=== PATIENT | female | born 1985 | race Caucasian/White ===

== ENCOUNTER 2017-10-04 14:20 | Emergency (ER) | payer SELFPAY ==
--- NOTE | 2017-10-04 14:58 | EDPHYS ---
Physician Documentation [facility] Name: Kortney Paniagua Age: 31 yrs Sex: Female : 1985 Arrival Date: 10/04/2017 Time: 14:23 Bed 12 Private MD: ED Physician Carlo More HPI: 10/04 14:53 This 31 yrs old Female presents to ER via Ambulatory with complaints of Rash..ps1 14:53 The patient's rash thought to be caused by insect bites. The rash is located on the ps1 right hand. The rash can be described as erythematous, papular, raised. 14:53 Associated signs and symptoms: Pertinent positives: itching, Pertinent negatives: ps1 fever. Treatment given at home: hydroxizine. The patient has been recently seen by a physician: MARVIN Mcdermott. 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 - Social history:: Smoking status: Patient uses tobacco products, smokes one pack cigarettes per day. ROS: 14:53 Constitutional: Negative for fever, chills, and weight loss, Eyes: Negative for injury, ps1 pain, redness, and discharge, Cardiovascular: Negative for chest pain, palpitations, and edema, Respiratory: Negative for shortness of breath, cough, wheezing, and pleuritic chest pain, Abdomen/GI: Negative for abdominal pain, nausea, vomiting, diarrhea, and constipation, Back: Negative for injury and pain, MS/Extremity: Negative for injury and deformity. 14:53 Skin: Positive for rash. Exam: 14:53 Constitutional: This is a well developed, well nourished patient who is awake, alert, ps1 and in no acute distress. Head/Face: Normocephalic, atraumatic. Chest/axilla: Normal chest wall appearance and motion. Nontender with no deformity. No lesions are appreciated. Cardiovascular: Regular rate and rhythm. No gallops, murmurs, or rubs. Normal PMI, no JVD. No pulse deficits. Respiratory: Lungs have equal breath sounds bilaterally, clear to auscultation and percussion. No rales, rhonchi or wheezes noted. No increased work of breathing, no retractions or nasal flaring. Abdomen/GI: Soft, non-tender, with normal bowel sounds. No distension or tympany. No guarding or rebound. No evidence of tenderness throughout. 14:53 Skin: rash a moderate rash is noted, rash can be described as erythematous, papular, raised, appears consistent with insect bites/chigger appearance. . Vital Signs: 14:34 BP 123 / 64; Pulse 91; Resp 14; Temp 97.8(TE); Pulse Ox 97% on R/A; Weight 65.77 kg lk1 (R); Height 5 ft. 2 in. (157.48 cm) (R); Pain 10/10; 14:34 Body Mass Index 26.52 (65.77 kg, 157.48 cm) lk1 MDM: 14:52 Patient medically screened. ps1 14:53 Data reviewed: vital signs, nurses notes. ps1 Administered Medications: No medications were administered Disposition: 10/04/17 14:57 Discharged to Home. Impression: Rash/ Insect bites consistent with chigger exposure. . - Condition is Stable. - Discharge Instructions: Insect Bite, Rash. - Prescriptions for Hydrocortisone 0.5 % Topical Cream - apply 1 application by TOPICAL route every 12 hours As needed; 30 gram. Medrol (Jose Antonio) 4 mg Oral Tablets, Dose Pack - take 1 tablet by ORAL route as directed - follow package instructions; 1 packet. - Work release form, Medication Reconciliation Form, Thank You Letter, Antibiotic Education, Prescription Opioid Use form. - Follow up: Private Physician; When: As needed; Reason: Recheck today's complaints, Continuance of care, Re-evaluation by your physician. Follow up: Emergency Department; When: As needed; Reason: Fever > 102 F, Trouble breathing, Worsening of condition. - Problem is an ongoing problem. - Symptoms are unchanged. Signatures: Mary Toledo RN RN aj1 Shannan Ramos RN RN lk1 Carlo More MD MD ps1
--- NOTE | 2017-10-04 14:58 | ER ---
Nurse's Notes [facility] Name: Kortney Paniagua Age: 31 yrs Sex: Female : 1985 Arrival Date: 10/04/2017 Time: 14:23 Bed 12 Private MD: Diagnosis: Rash/ Insect bites consistent with chigger exposure. Presentation: 10/04 14:31 Presenting complaint: Patient states: "I got this rash on my hand (right) 3 days ago. lk1 It started like mosquito bites and now it looks like this. Its on my hand, shoulder, face, and hip. I went to another ER and they don't know what it is, they just gave me a bunch of pills.". Transition of care: patient was not received from another setting of care. Onset of symptoms was October 01, 2017. Care prior to arrival: None. 14:31 Method Of Arrival: Ambulatory lk1 14:31 Acuity: JOSEMANUEL 4 lk1 Triage Assessment: 14:34 General: Appears in no apparent distress. Behavior is calm, cooperative, appropriate lk1 for age. Pain: Complains of pain in right hand Pain currently is 10 out of 10 on a pain scale. Respiratory: Airway is patent Respiratory effort is even, unlabored, Respiratory pattern is regular, symmetrical. 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 - Social history:: Smoking status: Patient uses tobacco products, smokes one pack cigarettes per day. Screenin:01 Abuse screen: Denies threats or abuse. Denies injuries from another. Nutritional aj1 screening: No deficits noted. Tuberculosis screening: No symptoms or risk factors identified. 15:09 Fall Risk None identified. aj1 Assessment: 15:01 General: Appears in no apparent distress. comfortable, Behavior is calm, cooperative, aj1 appropriate for age. Pain: Denies pain. Neuro: Level of Consciousness is awake, alert, obeys commands, Oriented to person, place, time, situation. Cardiovascular: Patient's skin is warm and dry. Respiratory: Airway is patent Respiratory effort is even, unlabored, Respiratory pattern is regular, symmetrical. GI: No signs and/or symptoms were reported involving the gastrointestinal system. : No signs and/or symptoms were reported regarding the genitourinary system. EENT: No signs and/or symptoms were reported regarding the EENT system. Derm: Rash noted that is itchy, papular, red, raised. Musculoskeletal: No signs and/or symptoms reported regarding the musculoskeletal system. Circulation, motion, and sensation intact. Vital Signs: 14:34 BP 123 / 64; Pulse 91; Resp 14; Temp 97.8(TE); Pulse Ox 97% on R/A; Weight 65.77 kg lk1 (R); Height 5 ft. 2 in. (157.48 cm) (R); Pain 10/10; 14:34 Body Mass Index 26.52 (65.77 kg, 157.48 cm) lk1 ED Course: 14:23 Patient arrived in ED. sb2 14:30 Carlo More MD is Attending Physician. ps1 14:33 Triage completed. lk1 14:36 Arm band placed on left wrist. lk1 14:53 Mary Toledo, RN is Primary Nurse. aj1 15:01 Patient has correct armband on for positive identification. aj1 15:01 No provider procedures requiring assistance completed. Patient did not have IV access aj1 during this emergency room visit. Administered Medications: No medications were administered Outcome: 14:57 Discharge ordered by . ps1 15:08 Discharged to home ambulatory. aj1 15:08 Condition: good 15:08 Discharge instructions given to patient, Instructed on discharge instructions, follow up and referral plans. medication usage, Demonstrated understanding of instructions, follow-up care, medications, Prescriptions given X 2. 15:09 Patient left the ED. aj1 Signatures: Mary Toledo, RN RN aj1 Shannan Ramos RN RN lk1 Carlo More MD MD ps1 Jyotsna Hanley sb2
== END 2017-10-04 15:09 | disposition home or self-care (01) ==
LOC: ER 14:20
DX: F17.210 Nicotine dependence, cigarettes, uncomplicated; R21 Rash and other nonspecific skin eruption
CPT/HCPCS: 99282

== ENCOUNTER 2018-07-03 16:33 | Emergency (ER) | payer SELFPAY ==
[2018-07-03] MEDS ORDERED: KETOROLAC 30 MG/ML INJ ONE (17:47)
--- NOTE | 2018-07-03 17:54 | ER ---
Nurse's Notes [facility] Name: Kortney Paniagua Age: 32 yrs Sex: Female : 1985 Arrival Date: 07/03/2018 Time: 16:37 Bed 10 Private MD: None, None Diagnosis: Internal derangement of knee-left Presentation: 07/03 16:45 Presenting complaint: Patient states: "I hurt my knee dancing last night". Pt states "I aa5 heard a pop". Pt c/o right knee pain. Transition of care: patient was not received from another setting of care. Onset of symptoms was June 2018. Risk Assessment: Do you want to hurt yourself or someone else? Patient reports no desire to harm self or others. Initial Sepsis Screen: Does the patient meet any 2 criteria? No. Patient's initial sepsis screen is negative. Does the patient have a suspected source of infection? No. Patient's initial sepsis screen is negative. Care prior to arrival: None. 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 - Social history:: Smoking status: Patient uses tobacco products, denies chronic smoking, but will smoke occasionally. - Ebola Screening: : No symptoms or risks identified at this time. Screenin:44 Abuse screen: Denies threats or abuse. Denies injuries from another. Nutritional aj screening: No deficits noted. Tuberculosis screening: No symptoms or risk factors identified. Fall Risk None identified. Assessment: 17:44 General: Appears in no apparent distress. comfortable, Behavior is calm, cooperative, aj appropriate for age. Pain: Complains of pain in right knee. Neuro: Level of Consciousness is awake, alert, obeys commands, Oriented to person, place, time, situation, Appropriate for age. Respiratory: Airway is patent Respiratory effort is even, unlabored, Respiratory pattern is regular, symmetrical. Derm: Skin is intact, is healthy with good turgor, Skin is pink, warm \\T\\ dry. normal. Musculoskeletal: Reports pain in right knee. 18:09 Reassessment: Patient appears in no apparent distress at this time. Patient and/or aj family updated on plan of care and expected duration. Pain level reassessed. Patient is alert, oriented x 3, equal unlabored respirations, skin warm/dry/pink. Vital Signs: 16:46 BP 107 / 75; Pulse 72; Resp 18 S; Temp 98.6(TE); Pulse Ox 98% on R/A; Weight 68.95 kg aa5 (R); Height 5 ft. 2 in. (157.48 cm) (R); Pain 10/10; 16:46 Body Mass Index 27.80 (68.95 kg, 157.48 cm) aa5 ED Course: 16:37 Patient arrived in ED. sb2 16:37 None, None is Private Physician. sb2 16:40 Leatha Multani [facility]-C [facility]. snw 16:40 Elvis Johnson MD is Attending Physician. snw 16:46 Triage completed. aa5 16:46 Arm band placed on. aa5 17:19 Myla Rivera, RN is Primary Nurse. aj 17:43 Knee Right 3 View In Process Unspecified. EDMS 17:44 Patient has correct armband on for positive identification. aj 17:44 No provider procedures requiring assistance completed. Patient did not have IV access aj during this emergency room visit. 17:53 Royal Myers MD is Referral Physician. snw Administered Medications: 17:43 Drug: TORadol 60 mg Route: IM; Site: left gluteus; aj 18:09 Follow up: Response: Pain is decreased aj Outcome: 17:53 Discharge ordered by . snw 18:19 Discharged to home with crutches. aj 18:19 Condition: good 18:19 Discharge instructions given to patient, Instructed on discharge instructions, follow up and referral plans. crutch walking, Demonstrated understanding of instructions, follow-up care, medications, crutch walking, Prescriptions given X 2. 18:20 Patient left the ED. aj Signatures: Dispatcher [employer] EDMyla Chang, RN RN Leatha Cedeno FNP-C FNP-Chely Tony RN RN aa5 Jyotsna Hanley sb2
--- NOTE | 2018-07-03 17:54 | EDPHYS ---
Physician Documentation [facility] Name: Kortney Paniagua Age: 32 yrs Sex: Female : 1985 Arrival Date: 07/03/2018 Time: 16:37 Bed 10 Private MD: None, None ED Physician Elvis Johnson HPI: 07/03 17:34 This 32 yrs old Female presents to ER via Wheelchair with complaints of Knee snw Injury. 17:34 The patient presents with decreased range of motion, an injury, pain, that is acute, snw swelling, tenderness. The complaints affect the medial aspect of left knee. Context: The problem was sustained at a bar or nightclub, resulted from a mis-step, dancing, the patient is not able to bear weight, the patient is not able to ambulate. Onset: The symptoms/episode began/occurred suddenly, last night. Associated signs and symptoms: Pertinent positives: swelling. Severity of symptoms: At their worst the symptoms were moderate, severe. The patient has not experienced similar symptoms in the past. The patient has not recently seen a physician. declines urine prior to x-ray stating she is a lesbian. 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 - Social history:: Smoking status: Patient uses tobacco products, denies chronic smoking, but will smoke occasionally. - Ebola Screening: : No symptoms or risks identified at this time. ROS: 17:24 Constitutional: Negative for fever, chills, and weight loss, Eyes: Negative for injury, snw pain, redness, and discharge, ENT: Negative for injury, pain, and discharge, Neck: Negative for injury, pain, and swelling, Cardiovascular: Negative for chest pain, palpitations, and edema, Respiratory: Negative for shortness of breath, cough, wheezing, and pleuritic chest pain, Abdomen/GI: Negative for abdominal pain, nausea, vomiting, diarrhea, and constipation, Back: Negative for injury and pain, : Negative for injury, bleeding, discharge, and swelling, Skin: Negative for injury, rash, and discoloration, Neuro: Negative for headache, weakness, numbness, tingling, and seizure. 17:24 MS/extremity: Positive for injury or acute deformity, decreased range of motion, pain, swelling, tenderness, of the left knee - medial aspect. Exam: 17:22 Constitutional: This is a well developed, well nourished patient who is awake, alert, snw and in no acute distress. Head/Face: Normocephalic, atraumatic. Eyes: Pupils equal round and reactive to light, extra-ocular motions intact. Lids and lashes normal. Conjunctiva and sclera are non-icteric and not injected. Cornea within normal limits. Periorbital areas with no swelling, redness, or edema. ENT: Nares patent. No nasal discharge, no septal abnormalities noted. Tympanic membranes are normal and external auditory canals are clear. Oropharynx with no redness, swelling, or masses, exudates, or evidence of obstruction, uvula midline. Mucous membranes moist. Neck: Trachea midline, no thyromegaly or masses palpated, and no cervical lymphadenopathy. Supple, full range of motion without nuchal rigidity, or vertebral point tenderness. No Meningismus. Chest/axilla: Normal chest wall appearance and motion. Nontender with no deformity. No lesions are appreciated. Cardiovascular: Regular rate and rhythm with a normal S1 and S2. No gallops, murmurs, or rubs. Normal PMI, no JVD. No pulse deficits. Respiratory: Lungs have equal breath sounds bilaterally, clear to auscultation and percussion. No rales, rhonchi or wheezes noted. No increased work of breathing, no retractions or nasal flaring. Abdomen/GI: Soft, non-tender, with normal bowel sounds. No distension or tympany. No guarding or rebound. No evidence of tenderness throughout. Back: No spinal tenderness. No costovertebral tenderness. Full range of motion. Skin: Warm, dry with normal turgor. Normal color with no rashes, no lesions, and no evidence of cellulitis. Neuro: Awake and alert, GCS 15, oriented to person, place, time, and situation. Cranial nerves II-XII grossly intact. Motor strength 5/5 in all extremities. Sensory grossly intact. Cerebellar exam normal. Normal gait. Psych: Awake, alert, with orientation to person, place and time. Behavior, mood, and affect are within normal limits. 17:22 Musculoskeletal/extremity: Extremities: grossly normal except: noted in the left knee: swelling, tenderness, Circulation is intact in all extremities. Tingling of extremity. Vital Signs: 16:46 BP 107 / 75; Pulse 72; Resp 18 S; Temp 98.6(TE); Pulse Ox 98% on R/A; Weight 68.95 kg aa5 (R); Height 5 ft. 2 in. (157.48 cm) (R); Pain 10/10; 16:46 Body Mass Index 27.80 (68.95 kg, 157.48 cm) aa5 MDM: 16:48 Patient medically screened. zandra 17:55 Data reviewed: vital signs, nurses notes. Data interpreted: Pulse oximetry: on room air snw is 98 %. Interpretation: normal. Counseling: I had a detailed discussion with the patient and/or guardian regarding: the historical points, exam findings, and any diagnostic results supporting the discharge/admit diagnosis, radiology results, the need for outpatient follow up, to return to the emergency department if symptoms worsen or persist or if there are any questions or concerns that arise at home. Special discussion: Based on the history and exam findings, there is no indication for further emergent testing or inpatient evaluation. I discussed with the patient/guardian the need to see the orthopedic surgeon for further evaluation of the symptoms. I discussed with the patient/guardian the need to see the primary care provider for further evaluation of the symptoms. 07/03 17:27 Order name: Knee Right 3 View EDNY 07/03 17:04 Order name: Knee Immobilizer; Complete Time: 18:09 snw 07/03 17:57 Order name: Crutches; Complete Time: 18:09 snw Administered Medications: 17:43 Drug: TORadol 60 mg Route: IM; Site: left gluteus; aj 18:09 Follow up: Response: Pain is decreased aj Disposition: 07/03/18 17:53 Discharged to Home. Impression: Internal derangement of knee - left. - Condition is Stable. - Discharge Instructions: Knee Immobilizer, Knee Sprain, RICE for Routine Care of Injuries, Cryotherapy, Heat Therapy. - Prescriptions for Crutches - One pair of Adult crutches. Diclofenac Sodium 75 mg Oral Tablet Sustained Release - take 1 tablet by ORAL route 2 times per day; 30 tablet. orphenadrine citrate 100 mg Oral Tablet Sustained Release - take 1 tablet by ORAL route 2 times per day As needed; 20 tablet. - Work release form, Medication Reconciliation Form, Thank You Letter, Antibiotic Education, Prescription Opioid Use form. - Follow up: Private Physician; When: 2 - 3 days; Reason: Recheck today's complaints, Continuance of care, Re-evaluation by your physician. Follow up: Emergency Department; When: As needed; Reason: Worsening of condition. Follow up: Royal Myers MD; When: 5 - 6 days; Reason: Recheck today's complaints, Continuance of care. Addendum: 07/11/2018 11:27 Co-signature as Attending Physician, Elvis Johnson MD I agree with the assessment and c mercado plan of care. Signatures: Dispatcher [employer] Myla Saavedra, RN Elvis Jewell MD MD cha Therrien, Shelly, QUARTZ ORIENTATOR-C QUARTZ ORIENTATOR-Csnw Chely Seaman RN RN aa5 Corrections: (The following items were deleted from the chart) 07/03 17:27 16:54 Knee Left 3 View+RAD.RAD.BRZ ordered. EDNY EDNY 18:11 17:04 Urine Test ordered. [facility] 18:12 17:04 Urine Dipstick-Ancillary ordered. [facility] 18:20 17:53 07/03/2018 17:53 Discharged to Home. Impression: Internal derangement of knee - aj left. Condition is Stable. Forms are Medication Reconciliation Form, Thank You Letter, Antibiotic Education, Prescription Opioid Use. Follow up: Private Physician; When: 2 - 3 days; Reason: Recheck today's complaints, Continuance of care, Re-evaluation by your physician. Follow up: Emergency Department; When: As needed; Reason: Worsening of condition. Follow up: Royal Myers; When: 5 - 6 days; Reason: Recheck today's complaints, Continuance of care. [facility]
--- NOTE | 2018-07-03 18:53 | RAD REPORT ---
EXAM DESCRIPTION: RAD - Knee Right 3 View - 07/03/2018 5:43 pm CLINICAL HISTORY: Right knee pain FINDINGS: No fracture or dislocation is seen. Moderate joint effusion is present.
== END 2018-07-03 18:20 | disposition home or self-care (01) ==
LOC: ER 16:33
DX: M23.92 Unspecified internal derangement of left knee (principal)
CPT/HCPCS: 96372; 99284

== ENCOUNTER 2024-01-18 22:47 | Emergency (ER) | payer OTHER ==
[2024-01-18] MEDS ORDERED: ONDANSETRON 4 MG (ODT) TAB ONE (23:29)
[2024-01-18 23:55] LABS: Arterial Blood Carboxyhemoglob 1.4 % (0-1.5); Blood Gas Oxyhemoglobin 94.9 % (94-97); Blood Gas THB 15.1 g/dl (12-18)
[2024-01-19] MEDS ORDERED: NA CHLORIDE 0.9% 1,000 ML ONE (00:19)
[2024-01-19 01:02] LABS: Barbiturates NEGATIVE (NEGATIVE); Benzodiazepines NEGATIVE (NEGATIVE); Cocaine NEGATIVE (NEGATIVE); METHAMPHETAM NEGATIVE (NEGATIVE); Methadone NEGATIVE (NEGATIVE); Opiates NEGATIVE (NEGATIVE); Phencyclidine NEGATIVE (NEGATIVE); THC Cannibis NEGATIVE (NEGATIVE)
[2024-01-19 01:03] LABS: Absolute Eosinophils 0.2 K/uL (0-0.5); Absolute Lymphocytes (CBC) 2.2 K/uL (0.7-4.9); Absolute Monocytes 0.4 K/uL (0.1-1.3); Absolute Neutrophil 5.2 K/uL (1.8-8.0); Basophils % 0.5 % (0-1.3); Eosinophils % 2.1 % (0-4.4); Hematocrit 41.6 % (36.0-45.0); Hemoglobin 14.2 g/dL (12.0-15.0); Lymphocytes % 27.2 % (15.3-44.8); MCH 32.6 pg (27.0-35.0); MCHC 34.1 g/dL (32.0-36.0); MCV 95.8 fL (80-100); MPV 8.4 fL (7.6-11.3); Monocytes % 5.5 % (3.3-12.3); Neutrophils % 64.7 % (41.7-73.7); Nucleated Red Blood Cells % 0.1 % (0-0); Platelets 221 thou/uL (152-406); RBC Red Blood Cell Count 4.34 M/uL (3.86-4.86)
[2024-01-19 01:07] LABS: ALT/SGPT 21 U/L (13-56); Albumin 3.2 g/dL (3.4-5.0); Albumin/Globulin Ratio 1.1 (1.1-1.8); Alkaline Phosphatase 44 U/L (45-117); Anion Gap 6.1 mEq/L (5.0-15.0); BUN Blood Urea Nitrogen 21 mg/dL (7-18); Bicarbonate 27 mEq/L (21-32); Bilirubin Total 0.4 mg/dL (0.2-1.0); Creatine Phosphokinase 30 U/L (26-192); Globulin 2.9 g/dL (2.3-3.5); Glomerular Filtration Rate 68 ml/min (=/>90); Glucose Level 108 mg/dL (74-106); Potassium 3.1 mEq/L (3.5-5.1); Protein, Total 6.1 g/dL (6.4-8.2); Sodium Level 139 mEq/L (136-145)
[2024-01-19 01:08] LABS: AST/SGOT < 10 U/L (15-37)
[2024-01-19 01:10] LABS: Specific Gravity 1.019 (1.005-1.030)
[2024-01-19 01:18] LABS: Specific Gravity 1.019 (1.005-1.030); Sqamous Epithelial <5 /HPF (None Seen); Urine Bacteria <20 /HPF (<20); Urine Bilirubin NEGATIVE (Negative); Urine Blood Negative (Negative); Urine Clarity Clear (Clear); Urine Color Light-Yellow (Yellow); Urine Culture Reflex Order NOT NEEDED; Urine Glucose NEGATIVE (Negative); Urine Ketones NEGATIVE (Negative); Urine Microscopic Reflex YN ORDER UMIC; Urine Mucus Slight /HPF (None Seen); Urine Nitrite NEGATIVE (Negative); Urine Protein NEGATIVE (Negative); Urine RBC None Seen /HPF (None Seen); Urine Urobilinogen Normal (Normal); Urine WBC <5 /HPF (<5); Urine pH 5.5 (5.0-7.0)
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
[2024-01-19 09:57] VITALS: BP 100/63; TEMP 97.5; O2SAT 99
--- NOTE | 2024-01-19 10:54 | EKG ---
Test Date: 2024-01-19 Test Time: 00:05:54 Electric Razor Mechanic: CHELLE MEASUREMENT RESULTS: Intervals: Rate: 56 SC: 148 QRSD: 88 QT: 434 QTc: 418 [place]: P: 52 SC: 148 QRS: 65 T: 50 INTERPRETIVE STATEMENTS: Sinus bradycardia Otherwise normal ECG Compared to ECG 07/30/2011 11:59:08 Sinus rhythm no longer present Electronically Signed On 01-19-24 10:53:37 CDT by Leroy Ovalle
--- NOTE | 2024-01-19 11:26 | RAD REPORT ---
EXAM DESCRIPTION: XR Chest, 1 View CLINICAL HISTORY: The patient is 38 years old and is Female; CHEST PAIN TECHNIQUE: Frontal view of the chest. COMPARISON: No relevant prior studies available. FINDINGS: Lungs: Unremarkable. No consolidation. Pleural space: Unremarkable. No pneumothorax. Heart: Unremarkable. Mediastinum: Unremarkable. Normal mediastinal contour. Bones/joints: No acute findings. IMPRESSION: No acute findings in the chest. Electronically signed by: Jose G Paige MD 01/19/2024 12:43 AM CDT 8 Due to temporary technical issues with the PACS/Fluency reporting system, reports are being signed by the in house radiologist without review as a courtesy to ensure prompt reporting. The interpreting r adiologist is fully responsible for the content of the report.
== END 2024-01-19 01:43 | disposition home or self-care (01) ==
LOC: ER 22:47
DX: R07.9 Chest pain, unspecified (principal)
CPT/HCPCS: 93005; 85025; 81001; 36415; 82550; 81025; 85379; 84484; 80053; 80307; 71045; 82805; 96360; 99284; 36600; Q0162; J7030

== ENCOUNTER 2024-04-04 11:25 | Emergency (ER) | payer OTHER, SELFPAY ==
[2024-04-04] MEDS ORDERED: NA CHLORIDE 0.9% 1,000 ML ONE (11:54)
[2024-04-04 12:21] LABS: Specific Gravity < 1.005 (1.005-1.030)
[2024-04-04 12:22] LABS: Absolute Eosinophils 0.2 K/uL (0-0.5); Absolute Lymphocytes (CBC) 1.9 K/uL (0.7-4.9); Absolute Monocytes 0.3 K/uL (0.1-1.3); Absolute Neutrophil 3.9 K/uL (1.8-8.0); Basophils % 0.5 % (0-1.3); Eosinophils % 2.7 % (0-4.4); Hematocrit 40.2 % (36.0-45.0); Hemoglobin 13.3 g/dL (12.0-15.0); Lymphocytes % 29.3 % (15.3-44.8); MCH 31.6 pg (27.0-35.0); MCV 95.9 fL (80-100); MPV 8.1 fL (7.6-11.3); Monocytes % 5.3 % (3.3-12.3); Neutrophils % 62.2 % (41.7-73.7); Platelets 264 thou/uL (152-406); RBC Red Blood Cell Count 4.19 M/uL (3.86-4.86); Red Cell Distribution Width 13.7 % (12.1-15.2)
[2024-04-04 12:23] LABS: Specific Gravity < 1.005 (1.005-1.030); Sqamous Epithelial <5 /HPF (None Seen); Urine Bacteria <20 /HPF (<20); Urine Bilirubin NEGATIVE (Negative); Urine Blood Negative (Negative); Urine Clarity Turbid (Clear); Urine Color Colorless (Yellow); Urine Culture Reflex Order NOT NEEDED; Urine Glucose NEGATIVE (Negative); Urine Ketones NEGATIVE (Negative); Urine Micro Reflex YN NO BILL MICROSCOPIC; Urine Nitrite NEGATIVE (Negative); Urine Protein NEGATIVE (Negative); Urine RBC None Seen /HPF (None Seen); Urine Urobilinogen Normal (Normal); Urine WBC <5 /HPF (<5); Urine pH 5.5 (5.0-7.0)
[2024-04-04 12:38] LABS: BUN Blood Urea Nitrogen 15 mg/dL (7-18); Bicarbonate 28 mEq/L (21-32); Glomerular Filtration Rate 102 ml/min (=/>90); Glucose Level 80 mg/dL (74-106); Sodium Level 138 mEq/L (136-145)
[2024-04-04 12:42] LABS: Troponin High Sensitivity < 3.0 pg/mL (<58.9)
--- NOTE | 2024-04-04 14:03 | ER ---
Nurse's Notes [facility] Name: Kortney Paniagua Age: 38 yrs Sex: Female : 1985 Arrival Date: 04/04/2024 Time: 11:25 Bed 20 Private MD: Diagnosis: Syncope Near Presentation: 04/04 11:39 Chief complaint: Patient states: STATES FELT LIKE WAS GOING TO PASS OUT WHILE AT WORK. db HX OF LOW POTASSIUM AND MAGNESIUM DUE TO GASTRIC BYPASS. STATES WAS ADMITTED AT [facility] FOR 3 DAYS. HAS SIMILAR SYMPTOMS. Coronavirus screen: Client denies travel out of the [place] in the last 14 days. At this time, the client does not indicate any symptoms associated with coronavirus-19. Ebola Screen: Patient negative for fever greater than or equal to 101.5 degrees Fahrenheit, and additional compatible Ebola Virus Disease symptoms Patient denies exposure to infectious person. Patient denies travel to an Ebola-affected area in the 21 days before illness onset. No symptoms or risks identified at this time. 11:39 Method Of Arrival: Wheelchair db 11:41 Initial Sepsis Screen: Does the patient meet any 2 criteria? No. Patient's initial db sepsis screen is negative. Does the patient have a suspected source of infection? No. Patient's initial sepsis screen is negative. Risk Assessment: Do you want to hurt yourself or someone else? Patient reports no desire to harm self or others. Onset of symptoms was April 04, 2024. 11:41 Acuity: JOSEMANUEL 3 db Triage Assessment: 11:41 General: Appears in no apparent distress. comfortable, Behavior is calm, cooperative, db appropriate for age. Pain: Denies pain. Neuro: Level of Consciousness is awake, alert, obeys commands, Oriented to person, place, time, situation, Reports a syncopal episode weakness. COMMUNICATION ENGINEER: 11:41 LMP 03/24/2024, unknown db Historical: - Allergies: 11:41 No Known Allergies; db - PMHx: 11:41 None; db - PSHx: 11:41 Gastric Bypass; db - Immunization history:: Adult Immunizations unknown. - Infectious Disease History:: Denies. - Social history:: Smoking status: Reported history of juuling and/or vaping. Screenin:58 [facility] ED Fall Risk Assessment (Adult) History of falling in the last 3 months, cm10 including since admission No falls in past 3 months (0 pts) Confusion or Disorientation No (0 pts) Intoxicated or Sedated No (0 pts) Impaired Gait No (0 pts) Mobility Assist Device Used No (0 pt) Altered Elimination No (0 pt) Score/Fall Risk Level 0 - 2 = Low Risk Oriented to surroundings, Maintained a safe environment, Hourly rounding (assess needs \T\ fall precautionary measures) done. Abuse screen: Denies threats or abuse. Denies injuries from another. Nutritional screening: No deficits noted. Tuberculosis screening: No symptoms or risk factors identified. Assessment: 11:57 General: Appears in no apparent distress. comfortable, Behavior is calm, cooperative. cm10 Neuro: No deficits noted. Level of Consciousness is awake, alert, obeys commands, Oriented to person, place, time, situation, Appropriate for age. Cardiovascular: No deficits noted. Heart tones present Patient's skin is warm and dry. Respiratory: No deficits noted. Airway is patent Respiratory effort is even, unlabored, Respiratory pattern is regular, symmetrical, Breath sounds are clear bilaterally. Derm: No deficits noted. Skin is healthy with good turgor. Musculoskeletal: No deficits noted. Range of motion: intact in all extremities. 12:37 Reassessment: Patient appears in no apparent distress at this time. No changes from cm10 previously documented assessment. Patient and/or family updated on plan of care and expected duration. Pain level reassessed. Patient is alert, oriented x 3, equal unlabored respirations, skin warm/dry/pink. Vital Signs: 11:39 BP 101 / 65; Pulse 66; Resp 16; Temp 98.2; Pulse Ox 100% ; Weight 49.44 kg; Height 5 db ft. 3 in. ; Pain 0/10; 12:00 BP 96 / 65; Pulse 59; Resp 18; Pulse Ox 100% on R/A; cm10 13:00 BP 94 / 66; Pulse 57; Resp 16; Pulse Ox 99% on R/A; cm10 14:30 BP 97 / 63; Pulse 57; Resp 16; Pulse Ox 100% ; bp 11:39 Body Mass Index 19.31 (49.44 kg, 160.02 cm) db 11:39 Pain Scale: Adult db ED Course: 11:27 Patient arrived in ED. mr 11:34 Savage Porter MD is Attending Physician. ec2 11:41 Triage completed. db 11:41 Arm band placed on Patient placed in an exam room. db 11:43 Marisabel Nguyen, RN is Primary Nurse. cm10 11:58 Patient has correct armband on for positive identification. Bed in low position. Call cm10 light in reach. Side rails up X2. Client placed on continuous cardiac and pulse oximetry monitoring. NIBP monitoring applied. equipment monitor phototypesetting on. Door closed. Warm blanket given. Pillow given. 12:02 EKG done, by ED staff, reviewed by Savage Porter MD. jr12 12:15 Initial lab(s) drawn, by id, sent to lab. Inserted saline lock: 20 gauge in right cm10 antecubital area, using aseptic technique. Blood collected. Flushed with 10 mL NS. 14:02 Tony Muniz MD is Referral Physician. ec2 14:29 No provider procedures requiring assistance completed. IV discontinued, intact, bp bleeding controlled, No redness/swelling at site. Pressure dressing applied. Administered Medications: 12:15 Drug: NS 0.9% IV 1000 ml IV at 1 bolus Per protocol; 1000 mL bolus Route: IV; Rate: 1 cm10 bolus; Site: right antecubital; 13:42 Follow up: Response: No adverse reaction; IV Status: Completed infusion; IV Intake: cm10 1000ml Medication: 11:58 VIS not applicable for this client. cm10 Intake: 13:42 IV: 1000ml; Total: 1000ml. cm10 Outcome: 14:02 Discharge ordered by MD. ec2 14:29 Discharged to home ambulatory, bp 14:29 Condition: stable 14:29 Discharge instructions given to patient, Instructed on discharge instructions, follow up and referral plans. Demonstrated understanding of instructions, follow-up care, 14:43 Patient left the ED. bp Signatures: Vaishali Rodriguez, Reg Reg mr Reno Hardin, TRACY RN bp Lata West, TRACY RN db Marisabel Nguyen, TRACY RN cm10 Savage Porter MD MD ec2 Vielka Roth jr12 Corrections: (The following items were deleted from the chart) 11:40 11:39 BP 101 / 65; Pulse 66bpm; Resp 16bpm; Pulse Ox 100%; Temp 98.2F; 49.44 kg; Height db 5 ft. 3 in.; BMI: 19.3; db
--- NOTE | 2024-04-04 14:03 | EDPHYS ---
Physician Documentation [facility] Name: Kortney Paniagua Age: 38 yrs Sex: Female : 1985 Arrival Date: 04/04/2024 Time: 11:25 Bed 20 Private MD: ED Physician Savage Porter HPI: 04/04 11:50 This 38 yrs old Female presents to ER via Wheelchair with complaints of Near ec2 Syncope. 11:50 Patient arrives today for evaluation of lightheadedness. Patient reports that they were ec2 walking and became lightheaded like the room in a pass out. History of gastric bypass, no chest pain, no difficulty breathing, no nausea, no vomiting, no diarrhea. No history of anemia.. 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 - Infectious Disease History:: Denies. - Social history:: Smoking status: Reported history of juuling and/or vaping. ROS: 11:50 Constitutional: as per hpi ec2 Exam: 11:50 Constitutional: GEN: NAD Head: atraumatic Eyes: EOMI Ears: External ears are ec2 normal. CV: regular rate LUNGS: no respiratory distress ABD: non-distended SKIN: no evidence of rashes MSK: no evidence of trauma 12:02 ECG was reviewed by the Attending Physician. ec2 Vital Signs: 11:39 BP 101 / 65; Pulse 66; Resp 16; Temp 98.2; Pulse Ox 100% ; Weight 49.44 kg; Height 5 db ft. 3 in. ; Pain 0/10; 12:00 BP 96 / 65; Pulse 59; Resp 18; Pulse Ox 100% on R/A; cm10 13:00 BP 94 / 66; Pulse 57; Resp 16; Pulse Ox 99% on R/A; cm10 14:30 BP 97 / 63; Pulse 57; Resp 16; Pulse Ox 100% ; bp 11:39 Body Mass Index 19.31 (49.44 kg, 160.02 cm) db 11:39 Pain Scale: Adult db MDM: 11:45 Patient medically screened. ec2 11:50 Data reviewed: vital signs. ED course: Patient arrives today for evaluation of ec2 lightheadedness. Examination remarkable for well-appearing nontoxic individuals otherwise in no acute distress with a reassuring examination. Will obtain lab work, EKG, urine studies. Differentials include processes such as , anemia, electrolyte disturbances, arrhythmia.. 12:01 ED course: EKG independently reviewed and interpreted by me, shows normal sinus rhythm, ec2 rate of 60, no acute ST segment elevations, nonactionable intervals.. 12:43 ED course: Metabolic profile is reassuring. Urine is noninfectious. Negative ec2 testing. CBC reassuring, troponin within normal ranges. No evidence of electrolyte disturbances, no evidence of actionable processes. Will discharge home have the patient follow-up primary care. Return precautions given . 04/04 11:50 Order name: Basic Metabolic Panel; Complete Time: 12:42 ec2 04/04 11:50 Order name: CBC with Diff; Complete Time: 12:42 ec2 04/04 11:50 Order name: Troponin HS; Complete Time: 12:42 ec2 04/04 11:50 Order name: UAM; Complete Time: 12:42 ec2 04/04 11:50 Order name: Test, Urine; Complete Time: 12:42 ec2 04/04 11:50 Order name: EKG; Complete Time: 11:50 ec2 04/04 11:50 Order name: Cardiac monitoring; Complete Time: 11:57 ec2 04/04 11:50 Order name: EKG - Nurse/Tech; Complete Time: 11:57 ec2 04/04 11:50 Order name: IV Saline Lock; Complete Time: 12:15 ec2 04/04 11:50 Order name: Labs collected and sent; Complete Time: 12:15 ec2 04/04 11:50 Order name: O2 Per Protocol; Complete Time: 11:57 ec2 04/04 11:50 Order name: O2 Sat Monitoring; Complete Time: 11:57 ec2 Administered Medications: 12:15 Drug: NS 0.9% IV 1000 ml IV at 1 bolus Per protocol; 1000 mL bolus Route: IV; Rate: 1 cm10 bolus; Site: right antecubital; 13:42 Follow up: Response: No adverse reaction; IV Status: Completed infusion; IV Intake: cm10 1000ml Disposition Summary: 04/04/24 14:02 Discharge Ordered Notes: Location: Home ec2 Condition: Stable ec2 Diagnosis - Syncope Near ec2 Followup: ec2 - With: Private Physician - When: - Reason: Re-evaluation by your physician Followup: ec2 - With: Tony Muniz MD - When: - Reason: Recheck today's complaints Discharge Instructions: - Discharge Summary Sheet ec2 - Near-Syncope ec2 Forms: - Medication Reconciliation Form ec2 - Antibiotic Education ec2 - Prescription Opioid Use ec2 - Patient Portal Instructions ec2 - Leadership Thank You Letter ec2 Signatures: Dispatcher [employer] Lata Ackerman RN RN db Marisabel Nguyen RN RN cm10 Savage Porter MD MD ec2 Corrections: (The following items were deleted from the chart) 11:51 11:51 Test, Urine+[id number].LAB.BRZ ordered. EDTX EDMS
[2024-04-04 14:47] VITALS: TEMP 98.2
[2024-04-04 14:50] VITALS: BP 97/63; O2SAT 100
--- NOTE | 2024-04-05 12:11 | EKG ---
Test Date: 2024-04-04 Test Time: 11:57:25 Supervisor Travel Trailer: ERICA MEASUREMENT RESULTS: Intervals: Rate: 60 CO: 156 QRSD: 86 QT: 428 QTc: 428 Mora: P: 66 CO: 156 QRS: 74 T: 61 INTERPRETIVE STATEMENTS: Normal sinus rhythm Normal ECG Compared to ECG 01/19/2024 00:05:54 Sinus bradycardia no longer present Electronically Signed On 04-05-24 12:08:54 CDT by Leroy Ovalle
== END 2024-04-04 14:43 | disposition home or self-care (01) ==
LOC: ER 11:25
DX: R55 Syncope and collapse (principal)
CPT/HCPCS: 36415; 80048; 81001; 81025; 84484; 85025; 93005; 96360; 99285; J7030